=== PATIENT | female | born 1970 ===

== ENCOUNTER 2017-10-23 21:34 | Emergency (ER) | payer SELFPAY ==
[2017-10-23 22:26] VITALS: BMI 36.3
[2017-10-23 22:56] VITALS: TEMP 98.8
[2017-10-23] MEDS ORDERED: Sodium Chloride 0.9% 1,000 ML IV STA (23:38)
[2017-10-24 00:22] LABS: BASO # 0.03 K/mm3 (0.0-2.0); BASO % 0.3 % (0.0-3.0); EOS # 0.1 (0.0-0.7); EOS % 0.9 % (1.5-5.0); GRAN # 5.54 (1.4-6.5); LYMPH # 2.5 (1.2-3.4); LYMPH % 28.5 % (22.0-35.0); MEAN CELL VOLUME 85.2 fl (80.0-105.0); MEAN CORPUSCULAR HGB CONC 32.8 g/dl (31.0-37.0); MEAN PLATELET VOLUME 11.6 fl (7.0-11.0); MONO # 0.6 (0.1-0.6); MONO % 6.3 % (1.0-6.0); RBC 4.65 10^6/uL (3.5-6.1); RED CELL DISTRIBUTION WIDTH 13.5 % (11.5-14.5); WHITE BLOOD COUNT 8.7 10^3/ul (4.5-11.0)
[2017-10-24 00:46] LABS: ALB/GLOB RATIO 1.1 (1.1-1.8); ALBUMIN 4.3 g/dL (3.0-4.8); AST/SGOT 41 U/L (14-36); BLOOD UREA NITROGEN 16 mg/dL (7-21); CALCIUM 9.3 mg/dL (8.4-10.5); GFR AFRICAN-AMERICAN > 60; GFR NON-AFRICAN AMERICAN > 60
[2017-10-24 00:47] LABS: ALT/SGPT 55 U/L (7-56)
--- NOTE | 2017-10-24 02:07 | ED PDOC ---
Arrival/HPI - General Chief Complaint: Headache Time Seen by Provider: 10/23/17 22:49 Historian: Patient - History of Present Illness Narrative History of Present Illness (Text): 10/24/17 02:19 47-year-old female presents today with a one-week history of neck pain and headache. Patient states pain started one week ago upon waking up from sleep. Patient denies any trauma or injury. Patient denies chest pain or shortness of breath. Patient states she ran out of her blood pressure medication. She states she takes nifedipine 30 mg daily. Patient denies vomiting, diarrhea or constipation. Patient denies abdominal pain. Patient states she has not taken any medications for the pain in her head and neck. Patient denies numbness weakness or tingling in the extremities. No other complaints Past Medical History - Provider Review Nursing Documentation Reviewed: Yes - Travel History Have you recently traveled outside [place] w/in the past 3 mons?: No - Tetanus Immunization Tetanus Immunization: Unknown - Cardiac Hx Hypertension: Yes - Pulmonary Hx Respiratory Disorders: No - Neurological Hx Neurological Disorder: No - HEENT Hx HEENT Disorder: No - Renal Hx Renal Disorder: No - Endocrine/Metabolic Hx Endocrine Disorders: No - Hematological/Oncological Hx Blood Disorders: No - Integumentary Hx Dermatological Disorder: No - Musculoskeletal/Rheumatological Hx Musculoskeletal Disorders: No - Gastrointestinal Hx Gastrointestinal Disorders: No - Genitourinary/Gynecological Hx Genitourinary Disorders: No - Psychiatric Hx Psychophysiologic Disorder: No Hx Substance Use: No - Surgical History Hx Tubal Ligation: Yes - Anesthesia Hx Anesthesia: No Family/Social History - Physician Review Nursing Documentation Reviewed: Yes Family/Social History: Unknown Family HX Smoking Status: Never Smoked Hx Alcohol Use: No Hx Substance Use: No Allergies/Home Meds Allergies/Adverse Reactions: Allergies No Known Allergies Allergy (Verified 10/23/17 22:25) Home Medications: Home Meds Medication Instructions Recorded Confirmed Unknown Bp Med 10/23/17 Review of Systems - Review of Systems Constitutional: absent: Fatigue, Fevers Respiratory: absent: SOB, Cough Cardiovascular: absent: Chest Pain, Palpitations Gastrointestinal: Nausea. absent: Abdominal Pain, Constipation, Vomiting Genitourinary Female: absent: Dysuria, Frequency, Hematuria Musculoskeletal: Neck Pain. absent: Arthralgias, Back Pain Skin: absent: Rash, Pruritis Neurological: Headache. absent: Dizziness Psychiatric: absent: Anxiety, Depression Physical Exam Vital Signs Reviewed: Yes Vital Signs Temp Pulse Resp BP Pulse Ox 10/23/17 22:56 98.8 F 103 H 97 H 174/99 H 20 L Temperature: Afebrile Blood Pressure: Normal Pulse: Tachycardic Respiratory Rate: Normal Appearance: Positive for: Well-Appearing, Non-Toxic, Comfortable Pain Distress: None Mental Status: Positive for: Alert and Oriented X 3 - Systems Exam Head: Present: Atraumatic Pupils: Present: PERRL Extroacular Muscles: Present: EOMI Conjunctiva: Present: Normal Ears: Present: Normal, NORMAL TM Mouth: Present: Moist Mucous Membranes Pharnyx: Present: Normal Neck: Present: MIDLINE TENDERNESS, Paraspinal Tenderness (+ bilateral cervical paraspinal tenderness), Trachea Midline. No: Normal Range of Motion (stiff full ROM of neck) Respiratory/Chest: Present: Clear to Auscultation, Good Air Exchange. No: Respiratory Distress, Accessory Muscle Use Cardiovascular: Present: Regular Rate and Rhythm, Normal S1, S2. No: Murmurs Abdomen: No: Tenderness, Distention, Rebound, Guarding Back: Present: Normal Inspection. No: Midline Tenderness, Paraspinal Tenderness Upper Extremity: Present: Normal ROM Lower Extremity: Present: Normal ROM Neurological: Present: GCS=15, Speech Normal Skin: Present: Warm, Dry, Normal Color. No: Rashes Psychiatric: Present: Alert, Oriented x 3 Medical Decision Making ED Course and Treatment: 10/24/17 02:25 47yr old female with neck pain and headache x 1 week worsening. no medications taken for pain at home. cbc; wnl cmp; wnl head ct;FINDINGS: Brain: No acute findings. No hemorrhage. No significant white matter disease. No edema. Ventricles: No acute findings. No ventriculomegaly. Bones/joints: No acute findings. No acute fracture. Soft tissues: No acute findings. Sinuses: No acute findings. No acute sinusitis. Mastoid air cells: No acute findings. No mastoid effusion. IMPRESSION: No acute findings cspine ct;FINDINGS: Vertebrae: Mild to moderate multilevel degenerative disease includes endplate osteophytosis and disc height loss. No critical central canal stenosis. No acute fracture. Discs/spinal canal/neural foramina: See above. Soft tissues: No acute findings. Lung apices: No acute findings. IMPRESSION: Mild to moderate multilevel degenerative disease includes endplate osteophytosis and disc height loss. No critical central canal stenosis. If clinically indicated, consider nonemergent MRI for further evaluation. after negative ct of head; toradol and valium given. pt reassessment; pt feeling much better after medication; full rom of neck. vitals stable. pt slightly hypertensive. pt states she hasnt taken her BP medications. pt states she ran out of nifedipine 30mg po daily. pt ambulating with steady gait. muscle strenght 5/5 bilaterally. no distress. I discussed all results and the patient advised follow-up with the primary care physician, office mail clerk/orthopedist within the next 2 days. Advised me to return if symptoms worsen persist or if new concerning symptoms develop. Patient verbalizes understanding of discharge instructions and need for immediate followup. all aspects of this case were discussed the attending of record. Impression: Neck pain, strain, headache, hypertension Motrin every 6 hours as needed for pain Valium 1 tablet every 8 hours as needed for muscle spasms colon may cause drowsiness Follow-up primary care physician within the next 2 days Follow-up with a office mail clerk Follow up with the orthopedist within the next 2 days. Return immediately if symptoms worsen persist or if new symptoms develop: high fevers, increasing headache, dizziness, weakness or if any other concerning symptoms develop. - Lab Interpretations Lab Results: 10/24/17 00:05 10/24/17 00:05 Lab Results 10/24/17 00:05: WBC 8.7, RBC 4.65, Hgb 13.0, Hct 39.6, MCV 85.2, MCH 28.0, MCHC 32.8, RDW 13.5, Plt Count 255, MPV 11.6 H, Gran % 64.0, Lymph % (Auto) 28.5, [place] % (Auto) 6.3 H, Eos % (Auto) 0.9 L, Baso % (Auto) 0.3, Gran # 5.54, Lymph # (Auto) 2.5, [place] # (Auto) 0.6, Eos # (Auto) 0.1, Baso # (Auto) 0.03 10/24/17 00:05: Sodium 143, Potassium 3.7, Chloride 100, Carbon Dioxide 33, Anion Gap 14, BUN 16, Creatinine 0.8, Est GFR ( Amer) > 60, Est GFR (Non- Af Amer) > 60, Random Glucose 100, Calcium 9.3, Total Bilirubin 0.2, AST 41 H, ALT 55, Alkaline Phosphatase 103, Total Protein 8.1, Albumin 4.3, Globulin 3.9, Albumin/Globulin Ratio 1.1 - RAD Interpretation Radiology Orders: 10/23/17 23:38 CERVICAL SPINE W/O CONTRAST [CT] Stat HEAD W/O CONTRAST [CT] Stat - Medication Orders Current Medication Orders: Discontinued Medications Diazepam (Valium) 5 mg PO ONCE ONE Stop: 10/24/17 01:23 Last Admin: 10/24/17 02:00 Dose: 5 mg Sodium Chloride (Sodium Chloride 0.9%) 1,000 mls @ 999 mls/hr IV .Q1H1M STA Stop: 10/24/17 00:38 Last Admin: 10/24/17 00:08 Dose: 999 mls/hr eMAR Start Stop Document 10/24/17 00:08 SS (Rec: 10/24/17 00:08 [id number]) Intravenous Solution Start Date 10/24/17 Start Time 00:08 End Date 10/24/17 End time 01:08 Total Infusion Time 60 Ketorolac Tromethamine (Toradol) 30 mg IVP STAT STA Stop: 10/24/17 01:23 Last Admin: 10/24/17 01:37 Dose: 30 mg MAR Pain Assessment Document 10/24/17 01:37 SS (Rec: 10/24/17 01:38 [id number]) Pain Reassessment Is this a pain reassessment? No Presence of Pain Presence of Pain Yes Pain Scale Used Pain Scale Used Numeric IVP Administration Document 10/24/17 01:37 SS (Rec: 10/24/17 01:38 [id number] Charges for Administration # of IVP Administrations 1 Disposition/Present on Arrival - Present on Arrival Any Indicators Present on Arrival: No History of DVT/PE: No History of Uncontrolled Diabetes: No Urinary Catheter: No History of Decub. Ulcer: No History Surgical Site Infection Following: None - Disposition Have Diagnosis and Disposition been Completed?: Yes Diagnosis: Neck pain, Arthritis, Headache, Hypertension Disposition: HOME/ ROUTINE Disposition Time: 02:30 Patient Plan: Discharge Condition: GOOD Discharge Instructions (ExitCare): High Blood Pressure (DC), Generalized Neck Pain (DC), Headache, Adult Additional Instructions: Motrin every 6 hours as needed for pain Valium 1 tablet every 8 hours as needed for muscle spasms colon may cause drowsiness Follow-up primary care physician within the next 2 days Follow-up with a office mail clerk Follow up with the orthopedist within the next 2 days. Return immediately if symptoms worsen persist or if new symptoms develop: high fevers, increasing headache, dizziness, weakness or if any other concerning symptoms develop. Prescriptions: diaZEpam [Valium] 2 mg PO Q8H PRN #6 tab PRN Reason: muscle spasms Ibuprofen [Motrin] 600 mg PO Q6H PRN #20 tab PRN Reason: pain/fever reduction Nifedipine [Nifedipine ER] 30 mg PO DAILY #7 tab.er.24 Referrals: Jose Luis Cochran MD [Staff Provider] - Follow up with primary Jordy Feldman MD [Staff Provider] - Follow up with primary Grady Styles MD [Staff Provider] - Follow up with primary Forms: [employer] (Malay), WORK NOTE
[2017-10-24 02:24] VITALS: BP 171/101; PULSE 80
[2017-10-24 02:56] VITALS: RESP 18; O2SAT 99
--- NOTE | 2017-10-24 08:25 | CT ---
PROCEDURE: CT HEAD WITHOUT CONTRAST. HISTORY: headache COMPARISON: None available. TECHNIQUE: Axial computed tomography images were obtained through the head/brain without intravenous contrast. Radiation dose: Total exam DLP = 874 mGy-cm. This CT exam was performed using one or more of the following dose reduction techniques: Automated exposure control, adjustment of the mA and/or kV according to patient size, and/or use of iterative reconstruction technique. FINDINGS: HEMORRHAGE: No intracranial hemorrhage. BRAIN: No mass effect or edema. No atrophy or chronic microvascular ischemic changes. VENTRICLES: Unremarkable. No hydrocephalus. CALVARIUM: Unremarkable. PARANASAL SINUSES: Unremarkable as visualized. No significant inflammatory changes. MASTOID AIR CELLS: Unremarkable as visualized. No inflammatory changes. OTHER FINDINGS: The report concurs with the preliminary [facility] report IMPRESSION: No acute findings
--- NOTE | 2017-10-24 08:27 | CT ---
PROCEDURE: CT Cervical Spine without contrast HISTORY: neck pain COMPARISON: None available. TECHNIQUE: Axial computed tomography images were obtained of the cervical spine without the use of intravenous contrast. Coronal and sagittal reformatted images were created and reviewed. Radiation dose: Total exam DLP = 563 mGy-cm. This CT exam was performed using one or more of the following dose reduction techniques: Automated exposure control, adjustment of the mA and/or kV according to patient size, and/or use of iterative reconstruction technique. FINDINGS: VERTEBRAE: No fracture. Normal alignment. No destructive bony lesion. DISCS/SPINAL CANAL/NEURAL FORAMINA: No significant central canal or neural foraminal stenosis. Mild disc degeneration and osteophyte formation at C5-6. No stenosis PARASPINAL SOFT TISSUES: Unremarkable. OTHER FINDINGS: The report concurs with the preliminary [facility] report IMPRESSION: No acute findings. Mild degenerative changes
== END 2017-10-24 02:55 | disposition home or self-care (01) ==
LOC: ED 21:34
DX: M54.2 Cervicalgia (principal); R51 Headache; I10 Essential (primary) hypertension; M19.90 Unspecified osteoarthritis, unspecified site
CPT/HCPCS: 70450; 72125; 80053; 85025; 96361; 96374; 99285; J1885; J7030